=== PATIENT | male | born 1975 | race Caucasian/White ===

== ENCOUNTER 2016-12-18 16:35 | Emergency (ER) | payer OTHER ==
[~2016-12-18] VITALS: Ht 187.9 cm; Wt 109.8 kg
[~2016-12-18 16:35] MED LIST: CYCLOBENZAPRINE10 MG PO; HYDROCODONE BIT1 T11 PO
[2016-12-18] MEDS ORDERED: PEPCID20 MG PO (16:42)
[2016-12-18] MEDS ORDERED: CLARITIN10 MG PO (16:42)
[2016-12-18] MEDS ORDERED: CLINDAMYCIN HC300 MG PO (16:48)
[2016-12-18] MEDS ORDERED: NAPROSYN500 MG PO (16:48)
== END 2016-12-18 17:09 | disposition home or self-care (01) ==
LOC: ED 16:35
DX: K08.89 Other specified disorders of teeth and supporting structures (principal); F17.200 Nicotine dependence, unspecified, uncomplicated; Z88.0 Allergy status to penicillin; Z79.899 Other long term (current) drug therapy

== ENCOUNTER → 2016-12-23 | Outpatient (CLI) | payer OTHER ==
[~2016-12-23] MED LIST changes: +CLARITIN10 MG PO; +CLINDAMYCIN HC300 MG PO; +NAPROSYN500 MG PO; +PEPCID20 MG PO
== END | disposition home or self-care (01) ==
LOC: RAD 16:27
DX: M54.6 Pain in thoracic spine (principal); M54.2 Cervicalgia